=== PATIENT | male | born 1935 | race Caucasian/White ===

== ENCOUNTER 2016-05-24 14:13 | Observation (INO) | payer OTHER ==
[~2016-05-24] VITALS: Ht 170.2 cm; Wt 78.8 kg
[2016-05-24 14:46] LABS: BASOPHIL COUNT 0.2 K/uL (0-0.1); EOSINOPHIL (%) 1.8 % (0-5); EOSINOPHIL COUNT 0.2 K/uL (0-0.3); HEMATOCRIT 37.8 % (38.0-50.0); IMMATURE GRANULOCYTE (%) 0.2 % (0.0-0.7); IMMATURE GRANULOCYTE COUNT 0.2 K/uL; LYMPHOCYTE COUNT 3.6 K/uL (1.0-2.8); MCH 28.6 PG (29.0-34.0); MCHC 32.3 G/DL (30.0-36.0); MCV 88.7 FL (86-99); MEAN PLAT.VOLUME 11.6 uM^3 (9.0-12.4); MONOCYTE (%) 7.9 % (3-12); MONOCYTE COUNT 0.8 K/uL (0-0.8); NEUTROPHIL (%) 52.1 % (45-76); NEUTROPHIL COUNT 5.1 K/uL (1.8-6.4); PLATELET COUNT 274 K/uL (156-360); RBC DIS.WIDTH-CV 15.9 % (11.8-14.6); RBC DIS.WIDTH-SD 50.9 % (39-53); RED BLOOD COUNT 4.26 M/uL (4.00-5.50); WHITE BLOOD COUNT 9.8 K/uL (4.1-10.2)
[2016-05-24 14:46] LABS: POINT-OF-CARE METER ID UU13113747
[2016-05-24 14:55] LABS: AMYLASE 37 IU/L (1-118); CHLORIDE 103 mEq/L (99-109); POTASSIUM 3.9 mEq/L (3.7-5.4); SODIUM 141 mEq/L (136-147)
[2016-05-24 14:56] LABS: GLUCOSE 275 mg/dL (70-99)
[2016-05-24 14:58] LABS: ANION GAP 14 MEQ/L (2-14)
[2016-05-24 15:00] LABS: GFR ESTIMATE (CALCULATED) 48 mL/min/; SERUM ETHYL ALCOHOL < 10 mg/dL
[2016-05-24 15:01] LABS: UREA NITROGEN (BUN) 20 mg/dL (9-23)
[2016-05-24 15:03] LABS: LIPASE 6 U/L (1.0-51.0)
[2016-05-24] MEDS ORDERED: ZYLOPRIM100 MG PO (16:10)
[2016-05-24] MEDS ORDERED: LASIX20 MG PO (16:10)
[2016-05-24] MEDS ORDERED: DEXILANT60 MG PO (16:10)
[2016-05-24] MEDS ORDERED: PLAVIX75 MG PO (16:11)
[2016-05-24] MEDS ORDERED: CILOSTAZOL100 MG PO (16:11)
[2016-05-24] MEDS ORDERED: LO-DOSE ASPIRIN81 M2 PO (16:11)
[2016-05-24] MEDS ORDERED: LOPRESSOR25 MG PO (16:11)
[2016-05-24] MEDS ORDERED: ISOSORBIDE MONO30 MG PO (16:12)
[2016-05-24] MEDS ORDERED: IRON325 M1 PO (16:12)
[2016-05-24] MEDS ORDERED: K-TAB10 MEQ PO (16:12)
[2016-05-24] MEDS ORDERED: MAGNESIUM400 M1 PO (16:13)
[2016-05-24] MEDS ORDERED: VITAMIN B-12250 MCG PO (16:14)
[2016-05-24] MEDS ORDERED: VITAMIN D35000 UNIT PO (16:14)
[2016-05-24] MEDS ORDERED: GAS RELIEF125 MG PO (16:15)
[2016-05-24] MEDS ORDERED: OXYCODONE HCL20 M1 PO (16:15)
[2016-05-24] MEDS ORDERED: COLACE100 MG PO (16:15)
[2016-05-24] MEDS ORDERED: GRAPE SEED50 M1 PO (16:16)
[2016-05-24] MEDS ORDERED: RESVERATROL50 MG PO (16:16)
[2016-05-24] MEDS ORDERED: LIPITOR40 MG PO (16:17)
[2016-05-24] MEDS ORDERED: MELATONIN + L-TH3 MG PO (16:18)
[2016-05-24 16:42] LABS: HEMATOCRIT 36.7 % (38.0-50.0); MCV 87.6 FL (86-99)
[2016-05-24] MEDS ORDERED: POMALYST1 MG PO (18:22)
[2016-05-24] MEDS ORDERED: GAS RELIEF 8080 MG PO (18:23)
[2016-05-24 20:10] VITALS: BP 127/71
[2016-05-24] MEDS ORDERED: FUROSEMIDE20 MG PO (21:38)
[2016-05-24] MEDS ORDERED: COLCRYS0.6 MG PO (21:39)
[2016-05-24] MEDS ORDERED: PROBIOTIC1 EAC1 PO (21:40)
[2016-05-24] MEDS ORDERED: DULCOLAX5 MG PO (21:40)
[2016-05-24] MEDS ORDERED: B COMPLETE1 EACH PO (21:40)
[2016-05-24] MEDS ORDERED: TRESIBA FL100 UNIT/1 SC (21:40)
[2016-05-24] MEDS ORDERED: APIDRA100 UNIT/1 SC (21:41)
[2016-05-25 00:37] VITALS: BP 124/65
[2016-05-25 05:16] VITALS: BP 127/68
[2016-05-25 07:56] VITALS: BP 150/75
[2016-05-25 09:13] LABS: HEMATOCRIT 33.8 % (38.0-50.0); MCH 28.9 PG (29.0-34.0); MCHC 32.5 G/DL (30.0-36.0); MCV 88.9 FL (86-99); RBC DIS.WIDTH-CV 16.2 % (11.8-14.6); RBC DIS.WIDTH-SD 52.2 % (39-53); WHITE BLOOD COUNT 8.3 K/uL (4.1-10.2)
[2016-05-25 09:51] LABS: ANION GAP 8 MEQ/L (2-14); CHLORIDE 106 MEQ/L (99-109); POTASSIUM 4.6 MEQ/L (3.7-5.4); SAMPLE HEMOLYSIS CHECK 1; SAMPLE ICTERIC CHECK 0; SAMPLE LIPEMIA CHECK 0; SODIUM 140 MEQ/L (136-147)
[2016-05-25 09:56] LABS: GFR ESTIMATE (CALCULATED) > 59 mL/min/; UREA NITROGEN (BUN) 14 mg/dL (9-23)
[2016-05-25 10:00] LABS: GLUCOSE 124 mg/dL (70-99)
[2016-05-25 10:59] LABS: MEAN PLAT.VOLUME 11.8 uM^3 (9.0-12.4)
[2016-05-25 11:00] LABS: PLATELET COUNT 188 K/uL (156-360)
[2016-05-25 16:45] VITALS: BP 121/58
[2016-05-25 20:08] VITALS: BP 137/75
[2016-05-25 22:01] LABS: POINT-OF-CARE METER ID UU13113698
[2016-05-25 23:54] VITALS: BP 169/88
[2016-05-26 04:26] VITALS: BP 145/86
[2016-05-26 07:52] LABS: POINT-OF-CARE METER ID UU13113781
[2016-05-26 09:00] VITALS: BP 167/82
[2016-05-26] MEDS ORDERED: NORCO 5/3251 TABLET PO (09:11)
[2016-05-26] MEDS ORDERED: KEFLEX500 MG PO (09:11)
[2016-05-26 11:44] LABS: POINT-OF-CARE METER ID UU13113781
== END 2016-05-26 14:30 | disposition home or self-care (01) ==
LOC: EME 14:13 → TRA 14:13 → EDOF 17:15 → 4EAST 17:15
PROVIDERS: Emergency Medicine; Surgery
PROC: 0HQLXZZ Repair Left Lower Leg Skin, External Approach (ICD-10-PCS; principal; 2016-05-24)
PROC: 30233N1 Transfusion of Nonautologous Red Blood Cells into Peripheral Vein, Percutaneous Approach (ICD-10-PCS; 2016-05-24)
DX: S81.812A Laceration without foreign body, left lower leg, initial encounter (principal); M79.662 Pain in left lower leg; D62 Acute posthemorrhagic anemia; I95.9 Hypotension, unspecified; E11.9 Type 2 diabetes mellitus without complications; Z79.4 Long term (current) use of insulin; C90.00 Multiple myeloma not having achieved remission; I73.9 Peripheral vascular disease, unspecified; I10 Essential (primary) hypertension; I25.10 Atherosclerotic heart disease of native coronary artery without angina pectoris; Z95.5 Presence of coronary angioplasty implant and graft; Z79.82 Long term (current) use of aspirin; Z79.02 Long term (current) use of antithrombotics/antiplatelets; Z95.820 Peripheral vascular angioplasty status with implants and grafts; N28.9 Disorder of kidney and ureter, unspecified; W01.111A Fall on same level from slipping, tripping and stumbling with subsequent striking against power tool or machine, initial encounter; Y92.015 Private garage of single-family (private) house as the place of occurrence of the external cause; Y99.8 Other external cause status; Y93.H9 Activity, other involving exterior property and land maintenance, building and construction; Z88.8 Allergy status to other drugs, medicaments and biological substances
CPT/HCPCS: 71010; 73590; 80048; 81003; 82150; 82948; 83690; 85014; 85018; 85025; 85027; 86850; 86900; 86901; 86920; 93005; 99281; 99285; C1729; G0378; G0480; J0690; J1170; J1815; J2270; J2405; J7030; J7050; P9016